=== PATIENT | female | born 1975 | race Caucasian/White ===

== ENCOUNTER 2018-02-19 15:48 | Inpatient (IN) ==
[2018-02-19] MEDS ORDERED: 0.9 % SODIUM CHLORIDE 1,000 ML IV ONE (15:59)
[2018-02-19] MEDS ORDERED: LACTATED RINGERS 1,000 ML IV ONE (16:23)
[2018-02-19] MEDS ORDERED: 0.9 % SODIUM CHLORIDE 1,000 ML IV SCH (16:30)
[2018-02-19] MEDS ORDERED: VANCOMYCIN 1,000 MG in 0.9 % SODIUM CHLORIDE 250 ML IV ONE (16:53)
[2018-02-19] MEDS ORDERED: LEVOFLOXACIN 500 MG/100 ML BAG IV ONE (16:53)
[2018-02-19] MEDS ORDERED: PIPERACILLIN SODIUM/TAZOBACTAM 3.375 GM in DEXTROSE 5% IN WATER 50 ML IV ONE (16:53)
--- NOTE | 2018-02-19 17:03 | XRay Report ---
INDICATION: Cough. Weakness. Syncope. TECHNIQUE: PA and lateral upright chest x-ray COMPARISON: Chest x-rays dated 10/17/2016, 09/12/2016, 08/21/2015 FINDINGS:There is cardiomegaly. Pulmonary vascularity is prominent with upper lobe redistribution. There is bronchial wall thickening. Appearance is most consistent with congestive heart failure and interstitial pulmonary edema. No pulmonary parenchymal consolidation. No pleural fluid. Clinical correlation and follow-up radiographs recommended. IMPRESSION: 1. Cardiomegaly 2. Prominent pulmonary vascularity and findings consistent with interstitial pulmonary edema Interpreted and Authenticated by: Luigi Lopes 02/19/18
--- NOTE | 2018-02-19 17:10 | Emergency Department Note ---
Syncope HPI - General Chief Complaint: Syncope Stated Complaint: Syncope in xray Time Seen by Provider: 02/19/18 15:58 Source: patient Mode of arrival: ambulatory - History of Present Illness HPI Narrative: 43-year-old female presents after a syncopal episode in radiology. States she went and saw Dr. Oviedo today after feeling very poorly for the last 3 days. She has had a fever, chills, and body aches that her first 24 hours. The body aches are now gone but she still just generally has no appetite and does not feel well. She has a cough that is occasionally productive with a clearish sputum. No sore throat or ear pain. No nausea, vomiting, or diarrhea. States she is really has not ate or drink much of anything in 3 days. Yesterday she ate half a hamburger but really has not eaten anything else in the last 72 hours. States she is only had a couple sips of water. Thinks she is just dehydrated when she would put her arms above her head to try to do a chest x- ray outpatient she had a syncopal episode. They have then brought her to the ER. She did not hit her head. No head, neck, or back pain. Dr. Oviedo did stop by to see the patient. Patient currently denies pain and has no complaints. She states she does get very lightheaded if she goes to stand up or moves too quickly. - Related Data Home Medications Medication Instructions Recorded Confirmed aspirin 81 mg tablet,delayed 81 mg PO QDAY tab 03/31/15 02/19/18 release calcium carbonate 500 mg calcium 1,250 mg PO QDAY tab 03/31/15 02/19/18 (1,250 mg) tablet fluticasone 50 mcg/actuation nasal 1 spray INTRANASAL BID PRN g 03/31/15 spray,suspension multivitamin tablet 1 tab PO QDAY tab 03/31/15 02/19/18 ibuprofen 600 mg tablet 600 mg PO Q4-8H PRN 07/17/15 02/19/18 Mycophenolate Mofetil [Cellcept] 1,500 mg PO BID 02/19/18 02/19/18 Previous Rx's Medication Instructions Recorded Acetaminophen [Tylenol] 650 mg PO Q6HP PRN #0 tab 08/22/15 ergocalciferol (vitamin D2) 50,000 50,000 unit PO QMONTH #12 cap 10/26/16 unit capsule hydrochlorothiazide 12.5 mg tablet 12.5 mg PO QDAY #30 tab 05/30/17 lisinopril 20 mg tablet 60 mg PO QDAY #90 tab 08/23/17 metoprolol tartrate 50 mg tablet 100 mg PO BID #120 tab 10/25/17 amlodipine 5 mg tablet 5 mg PO QDAY #30 tab 01/08/18 mycophenolate mofetil 500 mg tablet 1,500 mg PO BID #180 tab 01/15/18 Allergies Allergy/AdvReac Type Severity Reaction Status Date / Time ceftriaxone [From Rocephin] Allergy Severe Rash Verified 02/19/18 15:53 Penicillins Allergy Mild Hives Verified 02/19/18 15:53 Sulfa (Sulfonamide Allergy Mild Hives Verified 02/19/18 15:53 Antibiotics) Review of Systems All systems ED: reviewed and negative except as stated. 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) Elevated creatine kinase level (Chronic) Rheumatic disease (Acute) Elevated sedimentation rate (Chronic) Pulmonary infiltrates (Resolved) Anemia, normocytic normochromic (Chronic) Elevated troponin (Chronic) Hypertension, essential (Chronic) Hyperlipidemia (Chronic) Edema (Chronic 02/04/15) Anxiety disorder (Resolved) Allergic rhinitis (Chronic 02/04/15) Acute cystitis (Resolved) Bronchitis (Resolved) Bronchitis (Resolved) Community acquired pneumonia (Resolved) Cough (Resolved) Dyspnea (Resolved) Elevated C-reactive protein (CRP) (Resolved) Hypotension (Resolved) Hypoxia (Resolved) Joint pain (Resolved) Liver function abnormality (Resolved) Muscle weakness (generalized) (Resolved) Pneumonia (Resolved) Rash (Resolved) Transaminitis (Resolved) Urinary tract infection (Resolved) Volume depletion (Resolved) Anemia (Inactive) Past Surgical History (Last Reviewed 11/22/17 @ 15:59 by NILO De Anda) History of section (Chronic) History of bladder surgery (Chronic) Medical history: Reports: other (Interstitial lung diseas , hypertension, hyperlipidemia) Psychiatric history: Reports: no psych history Surgical history ED: Reports: , other - Social History smoking status: Never smoker Alcohol use: Reports: Rarely Drug use: Reports: none Physical Exam Limitations: no limitations General appearance: alert, in no apparent distress Head: atraumatic, normocephalic, normal inspection Eye: Present: normal appearance ENT: normal exam, normal oropharynx, mucous membranes moist, normal external ear exam Neck: Present: normal inspection, full ROM, trachea midline. Absent: tenderness , lymphadenopathy Chest: Present: normal inspection, symmetric chest wall rise Respiratory: Present: normal lung sounds bilaterally. Absent: respiratory distress, wheezes, accessory muscle use Cardiovascular: Present: regular rate, normal heart sounds Extremities: Present: normal inspection, normal capillary refill. Absent: pedal edema Neurological: Present: alert, oriented X3, normal gait Psychiatric: Present: normal affect, normal mood Skin: Present: warm, dry, intact, normal color. Absent: rash Course Course Narrative: At 1750 I did speak with the hospitalist, Dr. Argueta who agrees to accept the patient. Vital Signs Temperature 101.3 F H 02/19/18 15:49 Pulse Rate 96 H 02/19/18 15:49 Respiratory Rate 16 02/19/18 15:49 Blood Pressure 98/67 02/19/18 15:49 Pulse Oximetry (%) 97 02/19/18 15:49 Temperature 99.7 F H 02/19/18 17:48 Pulse Rate 107 H 02/19/18 17:36 Respiratory Rate 22 02/19/18 17:36 Blood Pressure 122/70 02/19/18 17:36 Pulse Oximetry (%) 95 02/19/18 17:36 Syncope - Lab Data Lab results reviewed: Yes I reviewed the patient's lab results. Lab Results 02/19/18 Range/Units 17:06 VBG Lactic Acid 1.2 (0.5-2.2) mmol/L - Radiology Data Radiology results reviewed: Yes I reviewed the patient's radiology results. Disposition Pt seen by [employer]/PA only: Yes Clinical Impression: Syncope due to orthostatic hypotension, Lower respiratory infection, Interstitial lung disease, Dehydration Disposition: Home, Self-Care Condition: Fair Referrals: Mary Metcalf ARNP [Primary Care Provider] - Lorne Oviedo MD [Physician] - Time of Disposition: 17:50
[2018-02-19 18:31] LABS: Appearance,Urine CLOUDY; Bacteria,Urine FEW /hpf (0); Bilirubin,Urine NEG (NEG); Color,Urine YELLOW; Glucose,Urine (UA) NEGATIVE (NEG); Leukocyte Esterase,Urine 25 /uL (NEG); Mucus,Urine MANY /hpf (0); Protein,Urine 30 mg/dL (NEG); Specific Gravity,Urine 1.019 (1.000-1.035); Urine Blood 0.03 mg/dL (<0.03); Urine Hyaline Cast 37 /lpf (0-2); Urine RBC 4 /hpf (0-1); Urine Squamous Epithelial Cell 3 /hpf (0-4); Urine WBC 8 /hpf (0-4); Urobilinogen,Urine NEG (NEG)
--- NOTE | 2018-02-19 18:35 | Internal Med History&Physical ---
Medical - H&P: HPI Patient information: Note initiated : 02/19/18 at 6:29 pm Service Date, if different from initiated Date: [] Patient: Darby Beal a 43 y/o F admitted on for Syncope in [facility]. Chief Complaint: [] History of present illness: Ms. Beal is a 43 year old Female with h/o antisynthetase antibody, ILD and inflammatory myositis, presents to the ER from [facility]. The patient follows with Dr Mansfield who is the fishing tool supervisor managing her chr conditions. The baseline health on , since Monday she has not been feeling well, she notes that she had been having chills fatigue and weakness. The patient's condition got worse over the next day. Her symptoms also included cough with whitish sputum. She just admitted to having significant malaise, and thought she was coming down with a viral illness. She also had decreased appetite and had not eaten much over the last 3 days or had much fluid intake over the last 3 days. She denies any other acute complaints or concerns. The patient felt that she was getting better this morning however her symptoms did not completely cristal. She therefore called her fishing tool supervisor. He advised her to come to the ER however the patient declined. He therefore ordered outpatient labs as well as chest x-ray for the patient. The patient and her labs, and while doing the chest x-ray the patient passed out. The patient was then sent to the ER for further evaluation. Cording to the patient she was standing upright when she passed out, there were no prodromal symptoms, no bowel bladder incontinence, no abnormal smells of visual changes, no chest pain palpitations before she passed out. He must have passed out for approximately a minute, felt that she was sweating when she woke up. In the ER the patient was febrile at presentation, tachycardic, blood pressure was borderline low, she usually takes blood pressure medications at home. According to the ED provider the patient also had positive orthostatic vital signs. Lab work shows leukocytosis with a WBC count of 16,000, hemoglobin is normal at 12.5, platelet 286. Patient has 14% bands, ESR is 100. Lactic acid is 1.2. Sodium 135, potassium 3.7, bicarbonate 22, BUN 16, creatinine 1.7 elevated from baseline, glucose 132. UA is pending. Chest x-ray shows increased markings possible CHF according to the radiology read. EKG is sinus tachycardia, non specivic t wave changes/ t wave flattening in the lateral leads, After reviewing care plan with Dr. mansfield it was decided to admit the patient, is okay to continue CellCept as per the fishing tool supervisor. 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) Elevated creatine kinase level (Chronic) Rheumatic disease (Acute) Elevated sedimentation rate (Chronic) Pulmonary infiltrates (Resolved) Anemia, normocytic normochromic (Chronic) Elevated troponin (Chronic) Hypertension, essential (Chronic) Hyperlipidemia (Chronic) Edema (Chronic 02/04/15) Anxiety disorder (Resolved) Allergic rhinitis (Chronic 02/04/15) Acute cystitis (Resolved) Bronchitis (Resolved) Bronchitis (Resolved) Community acquired pneumonia (Resolved) Cough (Resolved) Dyspnea (Resolved) Elevated C-reactive protein (CRP) (Resolved) Hypotension (Resolved) Hypoxia (Resolved) Joint pain (Resolved) Liver function abnormality (Resolved) Muscle weakness (generalized) (Resolved) Pneumonia (Resolved) Rash (Resolved) Transaminitis (Resolved) Urinary tract infection (Resolved) Volume depletion (Resolved) Anemia (Inactive) Surgical history: Past Surgical History (Last Reviewed 11/22/17 @ 15:59 by NILO De Anda) History of section (Chronic) History of bladder surgery (Chronic) Pertinent family history: Family History (Last Reviewed 11/22/17 @ 15:59 by NILO De Anda) Grandmother(Maternal) Malignant neoplasm of breast Father History of coronary artery bypass surgery Family history of arthritis Essential hypertension Medical - H&P: Meds Home Medications Medication Instructions Recorded Confirmed Type aspirin 81 mg tablet,delayed 81 mg PO QDAY tab 03/31/15 02/19/18 History release calcium carbonate 500 mg calcium 1,250 mg PO QDAY tab 03/31/15 02/19/18 History (1,250 mg) tablet fluticasone 50 mcg/actuation nasal 1 spray INTRANASAL BID PRN g 03/31/15 History spray,suspension multivitamin tablet 1 tab PO QDAY tab 03/31/15 02/19/18 History ibuprofen 600 mg tablet 600 mg PO Q4-8H PRN 07/17/15 02/19/18 History Acetaminophen [Tylenol] 650 mg PO Q6HP PRN #0 tab 08/22/15 02/19/18 Rx ergocalciferol (vitamin D2) 50,000 50,000 unit PO QMONTH #12 cap 10/26/16 Rx unit capsule hydrochlorothiazide 12.5 mg tablet 12.5 mg PO QDAY #30 tab 05/30/17 02/19/18 Rx lisinopril 20 mg tablet 60 mg PO QDAY #90 tab 08/23/17 02/19/18 Rx metoprolol tartrate 50 mg tablet 100 mg PO BID #120 tab 10/25/17 02/19/18 Rx amlodipine 5 mg tablet 5 mg PO QDAY #30 tab 01/08/18 02/19/18 Rx mycophenolate mofetil 500 mg tablet 1,500 mg PO BID #180 tab 01/15/18 02/19/18 Rx Mycophenolate Mofetil [Cellcept] 1,500 mg PO BID 02/19/18 02/19/18 History Allergies Allergy/AdvReac Type Severity Reaction Status Date / Time ceftriaxone [From Rocephin] Allergy Severe Rash Verified 02/19/18 15:53 Penicillins Allergy Mild Hives Verified 02/19/18 15:53 Sulfa (Sulfonamide Allergy Mild Hives Verified 02/19/18 15:53 Antibiotics) Medical - H&P: Exam - Constitutional Vitals: Temp Pulse Resp BP Pulse Ox 99.7 F H 112 H 20 122/71 96 02/19/18 17:48 02/19/18 18:16 02/19/18 18:16 02/19/18 18:16 02/19/18 18:16 Exam: GENERAL: The patient is a well-developed, well-nourished in no apparent distress. Is alert and oriented x3. obese indvidual VITAL SIGNS: Reviewed and as noted elsewhere. HEENT: Head is normocephalic and atraumatic. Extraocular muscles are intact. Pupils are equal, round, and reactive to light. Nares appeared normal. Mouth appears any without lesions. Mucous membranes are dry . NECK: Normal to inspection, Supple, No lymphadenopathy or thyromegaly. LUNGS: Air entry equal on both sides, no wheezing, crackles or rhonchi noted. No accessory muscles of respiration HEART: tachycardic rate and rhythm normal, S1 and S2 heard, no Gallop, S3 or Rub Noted, No Gross murmur heard. ABDOMEN: Soft, nontender, and nondistended. Positive bowel sounds. No hepatosplenomegaly was noted. EXTREMITIES: No cyanosis, clubbing, rash, lesions or edema. NEUROLOGIC: Cranial nerves II through XII are grossly intact. Motor and Sensory System Grossly Intact PSYCHIATRIC: Normal affect, Normal Mood. Appropriate Behavior. SKIN: No ulceration or wounds noted, No jaundice, No rash noted. Medical - H&P: A/P - Narrative A/P Narrative: A/P Pneumonia/ health care associated/ Pt is immunocompromised Sepsis Syncope due to volume depletion, Acute Kidney Injury, likely pre renal due to poor oral intake Inflammatory myositis/ ILD Obesity Hypertension Anxiety disorder Anemia PLan Admit to inpatient, monitor on tele given recent syncope IV vancomycin, levofloxacin and aztreonam (pt allergic to penicillin and cephlosporin) send mycoplasma, legionella, strep antigen, blood cx send, get sputum cx get CT chest given high suspicion of pna, if neg will need to look for souce of infection paul mosie, pt had no urinary complaints, ua pending conitnue cell cept, hold blood pressure meds IV fluids monitor renal function Plan of care reviewed with Dr Mansfield, DVT hep sq diet regular full code. Social History - Social History adopted: No caregiver/support person: No foster care: No household members: spouse, family housing: house lives independently: Yes marital status: education level: college service: No senior living: No occupational status: employed occupation: Teaching assisstant pets and animals: No hx recent travel: No sexually active: Yes - Tobacco smoking status: Never smoker - Alcohol alcohol intake frequency: does not drink - Substance use substance use type: does not use
[2018-02-19] MEDS ORDERED: ACETAMINOPHEN 325 MG TABLET PO PRN (18:53)
[2018-02-19] MEDS ORDERED: oxyCODONE/APAP 5/325MG TABLET PO PRN (18:53)
[2018-02-19] MEDS ORDERED: VANCOMYCIN PER PHARMACY IV SCH (18:53)
[2018-02-19] MEDS ORDERED: NALOXONE HCL 0.4 MG/ML VIAL IV PRN (18:53)
[2018-02-19] MEDS ORDERED: ONDANSETRON 4 MG/2 ML VIAL IV PRN (18:53)
[2018-02-19] MEDS ORDERED: FLUTICASONE PROPIONATE SPRAY.NAS NS PRN (18:53)
--- NOTE | 2018-02-19 19:23 | Cat Scan Report ---
CLINICAL INFORMATION: Interstitial lung disease COMPARISON: Previous chest x-rays dated 02/19/2018, 10/17/2016, 09/12/2016. Previous chest CT scan dated 05/05/2016 TECHNIQUE: Axial noncontrast enhanced images through the chest. Sagittally and coronally reformatted images. MIP reformatted images. Intravenous contrast material was not administered FINDINGS: Focal pulmonary parenchymal density in the right lung apex. This is not visible on plain film examination. This extends to the pleural surface. This may be pneumonia. Follow-up radiographs are necessary to exclude neoplasm. This is a new finding since previous CT scan. There are nonspecific peripheral infiltrates bilaterally, left slightly worse than right and worse at the lung bases. Interstitial edema is suspected on plain film examination. No other focal areas of consolidation. Patient gives a history of interstitial fibrosis. There is no honeycombing. There is no bronchiectasis. No centrilobular or paraseptal emphysema. There is no pathologic mediastinal adenopathy. The patricia are prominent. Intravenous contrast material was not administered in this examination is not sensitive for hilar adenopathy. There is coronary artery calcification, advanced for age. There is minimal right pleural fluid. No significant pericardial fluid. No axillary adenopathy. Upper abdomen is negative. IMPRESSION: 1. Dense focal pulmonary parenchymal density in the right lung apex. Appearance is most consistent with pneumonia. Follow-up examinations necessary to exclude neoplasm 2. Nonspecific mild peripheral and basilar infiltrates. Findings may be due to pneumonia but interstitial edema is possible 3. Coronary artery calcification, advanced for age The exam was performed using radiation dose optimization techniques including, but not limited to, automated exposure control, adjustment of the mA and/or kV according to patient size and use of iterative reconstruction technique. Interpreted and Authenticated by: Luigi Lopes 02/19/18
[2018-02-19] MEDS: 0.9 % SODIUM CHLORIDE 1,000 ML IV SCH (19:32)
[2018-02-19] MEDS: FAMOTIDINE 20 MG TABLET PO SCH (21:24)
[2018-02-19] MEDS: MYCOPHENOLATE 250 MG CAPSULE PO SCH (21:24)
[2018-02-19] MEDS: HEPARIN 5,000 UNIT/ML VIAL SQ SCH (21:25)
[2018-02-19] MEDS: 0.9 % SODIUM CHLORIDE 10 ML SYRINGE IV SCH (21:31)
[2018-02-19] MEDS: AZTREONAM 2 GM VIAL IV SCH (21:31)
[2018-02-20] MEDS: 0.9 % SODIUM CHLORIDE 1,000 ML IV SCH ×2 (04:42→11:55)
[2018-02-20] MEDS: 0.9 % SODIUM CHLORIDE 10 ML SYRINGE IV SCH ×3 (05:24→21:31)
[2018-02-20] MEDS: AZTREONAM 2 GM VIAL IV SCH ×3 (05:24→21:31)
[2018-02-20 05:32] LABS: Basophils # (Auto) 0 K/mcL (0.0-0.3); Basophils % (Auto) 0 % (0.0-2.0); Eosinophils # (Auto) 0 K/mcL (0.0-0.7); Eosinophils % (Auto) 0.2 % (0.0-7.0); Granulocytes % (Auto) 72.6 % (38.0-78.0); Lymphocytes % (Auto) 9.9 % (15.5-49.0); Mean Cell Volume 90.2 fL (80.0-100.0); Mean Corpuscular HGB Conc 33.8 g/dL (31.0-36.0); Mean Corpuscular Hemoglobin 30.5 pg (26.0-34.0); Monocytes # (Auto) 1.7 K/mcL (0.1-0.9); Monocytes % (Auto) 17.3 % (1.0-12.0); Platelet Count 196 K/mcL (140-440); RBC 3.35 M/mcL (4.00-5.20); Red Cell Distribution Width 13.1 % (11.5-14.5)
[2018-02-20 05:59] LABS: ALT/SGPT 6 U/l (0-40); Albumin 3.7 gm/dL (3.2-5.2); Albumin/Globulin Ratio 1.4 (1.0-2.3); Alkaline Phosphatase 50 U/L (39-117); Bilirubin,Direct < 0.2 mg/dL (0.0-0.3); Blood Urea Nitrogen 10 mg/dl (6-20); Gamma Glutamyl Transpeptidase 32 U/L (5-36); Uric Acid 5.8 mg/dL (2.5-8.0)
[2018-02-20] MEDS ORDERED: MAGNESIUM SULFATE 2 GM/50 ML BAG IV ONE (07:08)
[2018-02-20] MEDS ORDERED: POTASSIUM CHLORIDE 20 MEQ PACKET PO ONE (07:08)
[2018-02-20] MEDS: MYCOPHENOLATE 250 MG CAPSULE PO SCH ×2 (07:21→20:15)
[2018-02-20] MEDS ORDERED: VANCOMYCIN 1,000 MG in 0.9 % SODIUM CHLORIDE 250 ML IV SCH (08:00)
[2018-02-20] MEDS ORDERED: LEVOFLOXACIN 750 MG/150 ML BAG IV SCH (09:00)
[2018-02-20] MEDS ORDERED: ASPIRIN 81 MG TAB.CHEW PO SCH (09:00)
[2018-02-20] MEDS ORDERED: CALCIUM (OYSTER SHELL) 500 MG TABLET PO SCH (09:00)
[2018-02-20] MEDS ORDERED: METOPROLOL TARTRATE 50 MG TABLET PO SCH (09:00)
[2018-02-20] MEDS: HEPARIN 5,000 UNIT/ML VIAL SQ SCH ×2 (09:17→21:30)
[2018-02-20] MEDS: FAMOTIDINE 20 MG TABLET PO SCH ×2 (09:17→21:31)
--- NOTE | 2018-02-20 12:03 | Internal Med Progress Note ---
Medical - PN: Subj Patient information: Note initiated : 02/20/18 at 11:44 am Service Date, if different from initiated Date: [] Patient: Darby Beal a 43 y/o F admitted on 02/19/18 for Pneumonia, Sepsis , Syncope due to Volume Depletion. Chief Complaint: [] Interval history: Ms. Beal is a 43 year old Female with h/o antisynthetase antibody, ILD and inflammatory myositis, presents to the ER from [facility]. The patient follows with Dr Mansfield who is the combine driver managing her chr conditions. The baseline health on , since Monday she has not been feeling well, she notes that she had been having chills fatigue and weakness. The patient's condition got worse over the next day. Her symptoms also included cough with whitish sputum. She just admitted to having significant malaise, and thought she was coming down with a viral illness. She also had decreased appetite and had not eaten much over the last 3 days or had much fluid intake over the last 3 days. She denies any other acute complaints or concerns. The patient felt that she was getting better this morning however her symptoms did not completely cristal. She therefore called her combine driver. He advised her to come to the ER however the patient declined. He therefore ordered outpatient labs as well as chest x-ray for the patient. The patient and her labs, and while doing the chest x-ray the patient passed out. The patient was then sent to the ER for further evaluation. Cording to the patient she was standing upright when she passed out, there were no prodromal symptoms, no bowel bladder incontinence, no abnormal smells of visual changes, no chest pain palpitations before she passed out. He must have passed out for approximately a minute, felt that she was sweating when she woke up. In the ER the patient was febrile at presentation, tachycardic, blood pressure was borderline low, she usually takes blood pressure medications at home. According to the ED provider the patient also had positive orthostatic vital signs. Lab work shows leukocytosis with a WBC count of 16,000, hemoglobin is normal at 12.5, platelet 286. Patient has 14% bands, ESR is 100. Lactic acid is 1.2. Sodium 135, potassium 3.7, bicarbonate 22, BUN 16, creatinine 1.7 elevated from baseline, glucose 132. UA is pending. Chest x-ray shows increased markings possible CHF according to the radiology read. EKG is sinus tachycardia, non specivic t wave changes/ t wave flattening in the lateral leads, After reviewing care plan with Dr. mansfield it was decided to admit the patient, is okay to continue CellCept as per the combine driver. 02/20 Patient seen and examined, no acute overnight events, patient on telemetry becomes tachycardic with movement otherwise has been doing well. This morning her appetite has come back somewhat was able to tolerate some breakfast. Microbiology is negative so far, sputum cultures showing some gram-positive cocci no isolation yet. Pt has no acute complaints Pertinent ROS: Denies headache, dizziness Denies chest pain, palpitations Denies cough or shortness of breath Denies abdominal pain, nausea or vomiting. - Constitutional Vitals: Vital Signs Temp Pulse Resp BP Pulse Ox 97.8 F 100 H 18 115/72 95 02/20/18 03:50 02/20/18 03:50 02/20/18 03:50 02/20/18 03:50 02/20/18 03:50 Period Temp Pulse Resp BP Sys/Grissom Pulse Ox Last 24 Hr 97.8 F-101.3 F 92-114 16-28 98-126/50-80 95-97 Intake and Output 02/19/18 02/20/18 02/20/18 21:59 05:59 13:59 Intake Total 2350 / 2350 1000 / 1000 1100 / 1100 Output Total 2 / 2 Balance 2350 / 2350 998 / 998 1100 / 1100 Weight 224 lb 9.6 oz Intake & Output: Intake & Output 02/19/18 02/20/18 02/20/18 21:59 05:59 13:59 Intake Total 2350 / 2350 1000 / 1000 1100 / 1100 Output Total 2 / 2 Balance 2350 / 2350 998 / 998 1100 / 1100 Weight 224 lb 9.6 oz Intake: IV 2350 / 2350 1000 / 1000 300 / 300 Sodium Chloride 0.9% 1,000 ml @ 1000 / 1000 1000 / 1000 125 mls/hr IV .Q8H [facility] Rx#: [id number] Lactated Ringers 1,000 ml @ 1000 / 1000 Wide Open IV BOLUS ONE Rx#: [id number] Vancomycin 1,000 mg In Sodium 250 / 250 250 / 250 Chloride 0.9% 250 ml @ 250 mls/ hr IV Q12H [facility] Rx#:[id number] Oral 800 / 800 Output: # of times incontinent of urine 2 / 2 Other: # Voids 2 Exam: Constitutional; Afebrile, cooperative, alert, not in distress. Eyes- No icterus, , No periorbital swelling Ears- Ext ear normal, hearing normal to conversation. Neck- Midline trachea, supple Respiratory system: Air Entry equal on both sides, No crackles or wheezing, no rhonchi. CVS- Rate rhythm regular, S1,S2 heard, no gallop, no rub. Abdomen- Soft nontender abdomen, no organomegaly, no tenderness, no guarding or rigidity, REFUELER- AOOx3, moving all extremities, no gross focal deficit noted. Medical - PN: Obj Da - Labs CBC & Chem 7: 02/20/18 04:00 02/20/18 04:00 Labs: Abnormal Lab Results 02/20/18 02/20/18 02/19/18 04:00 04:00 17:53 RBC 3.35 L Hgb 10.2 L Hct 30.2 L Lymph % (Auto) 9.9 L Kingman % (Auto) 17.3 H Lymph # (Auto) 1.0 L Kingman # (Auto) 1.7 H Carbon Dioxide 20 L Calcium 8.4 L Phosphorus 2.6 L Magnesium 1.4 L Urine Protein 30 A Urine Ketones 20 A Urine Occult Blood 0.03 A Ur Leukocyte Esterase 25 A Urine RBC 4 H Urine WBC 8 H Urine Bacteria Few A Hyaline Casts 37 H Urine Mucus Many A Meds: Medications Acetaminophen (Tylenol) 650 mg PO Q6HP PRN PRN Reason: PAIN/FEVER > 101 Aspirin (Aspirin) 81 mg PO DAILY [facility] Last Admin: 02/20/18 09:17 Dose: 81 mg Aztreonam (Azactam) 2 gm IV Q8H [facility] Last Admin: 02/20/18 05:24 Dose: 2 gm Calcium Carbonate/Glycine (Oscal) 1,000 mg PO QDAY [facility] Last Admin: 02/20/18 09:17 Dose: 1,000 mg Famotidine (Pepcid) 20 mg PO BID [facility] Last Admin: 02/20/18 09:17 Dose: 20 mg Fluticasone Propionate (Flonase) 1 spray NS BIDP PRN PRN Reason: allergy symptoms Heparin Sodium (Porcine) (Heparin) 5,000 unit SQ Q12 [facility] Last Admin: 02/20/18 09:17 Dose: 5,000 unit Levofloxacin (Levaquin) 750 mg in 150 mls @ 100 mls/hr IV Q24H [facility] Last Admin: 02/20/18 09:18 Dose: 100 mls/hr Sodium Chloride (Sodium Chloride 0.9%) 1,000 mls @ 125 mls/hr IV .Q8H [facility] Stop: 02/20/18 18:52 Last Admin: 02/20/18 04:42 Dose: 125 mls/hr Vancomycin HCl 1,000 mg/ (Sodium Chloride) 250 mls @ 250 mls/hr IV Q12H [facility] Last Infusion: 02/20/18 08:49 Dose: Infused Mycophenolate Mofetil (Cellcept) 1,500 mg PO BID@0700,2000 [facility] Last Admin: 02/20/18 07:21 Dose: 1,500 mg Naloxone HCl (Narcan) 0.1 mg IV Q2MIN PRN PRN Reason: Opiate Reversal Ondansetron HCl (Zofran) 4 mg IV Q4HP PRN PRN Reason: Nausea And Vomiting Oxycodone/Acetaminophen (Percocet 5-325 Mg) 1 tab PO Q4HP PRN PRN Reason: PAIN LEVEL 3-6 Sodium Chloride (Saline Flush) 10 ml IV Q8 [facility] Last Admin: 02/20/18 05:24 Dose: 10 ml Vancomycin HCl (Vancomycin Per Pharmacy) 1 order IV [facility] [place] Medical - PN: A/P - Time Spent With Patient Total time spent is greater than 50% in coordination of care (as documented) at patient's floor/unit and/or counseling patient: - Narrative A/P Narrative: A/P Pneumonia/ health care associated/ Pt is immunocompromised Sepsis Syncope due to volume depletion, Acute Kidney Injury, likely pre renal due to poor oral intake Inflammatory myositis/ ILD Obesity Hypertension Anxiety disorder Anemia PLan Continue to monitor No evidence of cardiac arrhythmia to explain syncope noted. Discontinue telemetry patient's syncope episode likely related to pneumonia and hypertension IV vancomycin, levofloxacin and aztreonam (pt allergic to penicillin and cephalosporin) New broad-spectrum antibiotics for pneumonia, CT scan confirms a right upper lobe pneumonia. Legionella studies pending, strep and mycoplasma antibodies are negative. Sputum cultures pending, blood cultures pending, sputum Gram stain shows some gram-positive cocci continue cell cept, BP stable, resume beta-blockers as patient has been having tachycardia. Will resume other medications as blood pressure improves further. Kidney function back to normal, Plan of care reviewed with Dr Mansfield, DVT hep sq diet regular full code. Medical - PN: Qual - VTE Deep Vein Thrombosis/Pulmonary Embolism Present on Admission: No
[2018-02-20] MEDS ORDERED: VANCOMYCIN PER PHARMACY IV SCH (12:21)
[2018-02-20] MEDS ORDERED: NALOXONE HCL 0.4 MG/ML VIAL IV PRN (12:21)
[2018-02-20] MEDS ORDERED: FLUTICASONE PROPIONATE SPRAY.NAS NS PRN (12:21)
[2018-02-20] MEDS ORDERED: ONDANSETRON 4 MG/2 ML VIAL IV PRN (12:21)
[2018-02-20] MEDS ORDERED: ACETAMINOPHEN 325 MG TABLET PO PRN (12:21)
[2018-02-20] MEDS ORDERED: oxyCODONE/APAP 5/325MG TABLET PO PRN (12:21)
[2018-02-20] MEDS: METOPROLOL TARTRATE 50 MG TABLET PO SCH ×2 (13:01→20:16)
[2018-02-20] MEDS: VANCOMYCIN 1,000 MG in 0.9 % SODIUM CHLORIDE 250 ML IV SCH (20:15)
[2018-02-21] MEDS: 0.9 % SODIUM CHLORIDE 10 ML SYRINGE IV SCH (05:29)
[2018-02-21] MEDS: AZTREONAM 2 GM VIAL IV SCH (05:29)
[2018-02-21 06:12] LABS: ALT/SGPT 11 U/l (0-40); Albumin 3.8 gm/dL (3.2-5.2); Albumin/Globulin Ratio 1.4 (1.0-2.3); Alkaline Phosphatase 57 U/L (39-117); Bilirubin,Direct < 0.2 mg/dL (0.0-0.3); Blood Urea Nitrogen 10 mg/dl (6-20); Gamma Glutamyl Transpeptidase 47 U/L (5-36); Uric Acid 4.6 mg/dL (2.5-8.0)
[2018-02-21 06:49] LABS: Basophils # (Auto) 0 K/mcL (0.0-0.3); Basophils % (Auto) 0.4 % (0.0-2.0); Eosinophils # (Auto) 0.1 K/mcL (0.0-0.7); Eosinophils % (Auto) 2.1 % (0.0-7.0); Granulocytes % (Auto) 50.5 % (38.0-78.0); Lymphocytes # (Auto) 1.5 K/mcL (1.5-4.8); Lymphocytes % (Auto) 23.7 % (15.5-49.0); Mean Cell Volume 90.9 fL (80.0-100.0); Mean Corpuscular HGB Conc 33.4 g/dL (31.0-36.0); Mean Corpuscular Hemoglobin 30.4 pg (26.0-34.0); Monocytes # (Auto) 1.5 K/mcL (0.1-0.9); Monocytes % (Auto) 23.3 % (1.0-12.0); Platelet Count 242 K/mcL (140-440); RBC 3.52 M/mcL (4.00-5.20); Red Cell Distribution Width 13.4 % (11.5-14.5)
[2018-02-21] MEDS: METOPROLOL TARTRATE 50 MG TABLET PO SCH (08:22)
--- NOTE | 2018-02-21 08:22 | Discharge Summary ---
Medical - DS: Prov Patient information: Note initiated : 02/21/18 at 8:18 am Service Date, if different from initiated Date: [] Patient: Darby Beal 43 y/o F admitted on 02/19/18 for Pneumonia, Sepsis , Syncope due to Volume Depletion. Chief Complaint: [] Date of admission: 02/19/18 18:45 Discharge date: 02/21/18 Primary care physician: Mary Metcalf Admitting clinician: Ramone Argueta Consults: 02/19/18 17:16 Consult to Physician [CONS] Stat Comment: Consulting Provider: Ramone Argueta Reason For Exam: Physician to Consult Discharging clinician: Ramone Argueta Medical - DS: Meds - Discharge Medications Prescriptions: Levofloxacin [Levaquin] 750 mg PO DAILY #7 tab Active and Home Medications: Home Medications aspirin 81 mg tablet,delayed release 81 mg PO QDAY tab 03/31/15 [History Confirmed 02/19/18 Last Taken 08/20/15] calcium carbonate 500 mg calcium (1,250 mg) tablet 1,250 mg PO QDAY tab [History Confirmed 02/19/18 Last Taken 08/20/15] fluticasone 50 mcg/actuation nasal spray,suspension 1 spray INTRANASAL BID PRN g 03/31/15 [History Confirmed 02/19/18 Last Taken Unknown] multivitamin tablet 1 tab PO QDAY tab 03/31/15 [History Confirmed 02/19/18 Last Taken 08/14/15] ibuprofen 600 mg tablet 600 mg PO Q4-8H PRN 07/17/15 [History Confirmed Last Taken Unknown] Acetaminophen [Tylenol] 650 mg PO Q6HP PRN #0 tab 08/22/15 [Rx Confirmed Last Taken Unknown] ergocalciferol (vitamin D2) 50,000 unit capsule 50,000 unit PO QMONTH #12 cap [Rx Confirmed 02/19/18 Last Taken Unknown] hydrochlorothiazide 12.5 mg tablet 12.5 mg PO QDAY #30 tab 05/30/17 [Rx Confirmed 02/19/18 Last Taken Unknown] lisinopril 20 mg tablet 60 mg PO QDAY #90 tab 08/23/17 [Rx Confirmed 02/19/18 Last Taken Unknown] metoprolol tartrate 50 mg tablet 100 mg PO BID #120 tab 10/25/17 [Rx Confirmed 02/19/18 Last Taken Unknown] amlodipine 5 mg tablet 5 mg PO QDAY #30 tab 01/08/18 [Rx Confirmed 02/19/18 Last Taken Unknown] mycophenolate mofetil 500 mg tablet 1,500 mg PO BID #180 tab 01/15/18 [Rx Confirmed 02/19/18 Last Taken Unknown] Mycophenolate Mofetil [Cellcept] 1,500 mg PO BID 02/19/18 [History Confirmed Last Taken Unknown] Medical - DS: Hosp Hospital course: Ms. Beal is a 43 year old Female with h/o antisynthetase antibody, ILD and inflammatory myositis, admitted to the hospital with symptos of fever, chills, syncope. The baseline health on , since Monday she has not been feeling well, she notes that she had been having chills fatigue and weakness. The patient's condition got worse over the next day. Her symptoms also included cough with whitish sputum, malaise/ fatigue. She also had decreased appetite and had not eaten much over the last 3 days or had much fluid intake over the last 3 days. The patient felt that she was getting better this morning however her symptoms did not completely cristal. She therefore called her specialty development consultant. He advised her to come to the ER however the patient declined. He therefore ordered outpatient labs as well as chest x-ray for the patient. The patient and her labs, and while doing the chest x-ray the patient passed out. The patient was then sent to the ER for further evaluation. In the ER the patient was febrile at presentation, tachycardic, blood pressure was borderline low, she usually takes blood pressure medications at home. According to the ED provider the patient also had positive orthostatic vital signs. Lab work shows leukocytosis with a WBC count of 16,000, hemoglobin is normal at 12.5, platelet 286. Patient has 14% bands, ESR is 100. Lactic acid is 1.2. Sodium 135, potassium 3.7, bicarbonate 22, BUN 16, creatinine 1.7 elevated from baseline, glucose 132. UA is pending. Chest x-ray shows increased markings possible CHF according to the radiology read. EKG is sinus tachycardia, non specivic t wave changes/ t wave flattening in the lateral leads, After reviewing care plan with Dr. mansfield it was decided to admit the patient, is okay to continue CellCept as per the specialty development consultant. patient was admitted to the hospital for further management, Broad spectrum ABX Started, CT chest ordered CT chest was positive for pneumonia in the right upper lobe. The patient was treated with IV vancomycin, aztreonam and levofloxacin for pna, / hcap coverage. The patient responded to treatment well. Her microbiology is negative at 48 hrs. She has shown significant clinical improvement. The patient is ambulatory, tolerating po diet well and in good spirits, She will be discharged home on oral levofloxacin for another 7 days She was monitored on tele and no significant arrythmia was noted. Her syncope likely from low bp and acute infection. She has been educated on the need for a repeat CT chest to evaluate The rest of the stay in the hospital was uneventful. No changes made to her [facility] home med list. CHEST CTIMPRESSION: 1. Dense focal pulmonary parenchymal density in the right lung apex. Appearance is most consistent with pneumonia. Follow-up examinations necessary to exclude neoplasm 2. Nonspecific mild peripheral and basilar infiltrates. Findings may be due to pneumonia but interstitial edema is possible 3. Coronary artery calcification, advanced for age Discharge diagnosis: Pneumonia - Time Spent with Patient Total time spent providing and/or coordinating discharge services: Less than 30 minutes Medical - DS: Exam - Constitutional Vitals: Vital Signs Temp Pulse Pulse Resp BP Pulse Ox 02/21/18 04:00 98.0 F 92 H 16 122/81 97 02/21/18 00:00 98.3 F 84 16 126/87 98 02/20/18 20:00 98.6 F 105 H 105 H 18 147/93 97 02/20/18 15:58 98.9 F 106 H 16 133/87 99 02/20/18 12:00 98.4 F 112 H 18 115/78 97 Intake and Output 02/20/18 02/21/18 02/21/18 21:59 05:59 13:59 Intake Total 240 / 240 800 / 800 Balance 240 / 240 800 / 800 Intake: Oral 240 / 240 800 / 800 Other: Meal Dinner Percent of Meal Consumed 100% Stool Color Brown Stool Consistency Normal for Patient # Voids 3 2 # Bowel Movements 1 Weight 222 lb 8 oz Additional comments: Constitutional; Afebrile, cooperative, alert, not in distress. Eyes- No icterus, , No periorbital swelling Ears- Ext ear normal, hearing normal to conversation. Neck- Midline trachea, supple Respiratory system: Air Entry equal on both sides, No crackles or wheezing, no rhonchi. CVS- Rate rhythm regular, S1,S2 heard, no gallop, no rub. Abdomen- Soft nontender abdomen, no organomegaly, no tenderness, no guarding or rigidity, PROJECT ASST- AOOx3, moving all extremities, no gross focal deficit noted. Medical - DS: Data Labs on day of discharge: Labs from last 24 hours 02/21/18 02/21/18 02/21/18 07:00 03:45 03:45 WBC 6.2 RBC 3.52 L Hgb 10.7 L Hct 32.0 L MCV 90.9 MCH 30.4 MCHC 33.4 RDW 13.4 Plt Count 242 MPV 8.7 Gran % 50.5 Lymph % (Auto) 23.7 Ray % (Auto) 23.3 H Eos % (Auto) 2.1 Baso % (Auto) 0.4 Gran # 3.2 Lymph # (Auto) 1.5 Ray # (Auto) 1.5 H Eos # (Auto) 0.1 Baso # (Auto) 0 Sodium 139 Potassium 4.2 Chloride 103 Carbon Dioxide 20 L Anion Gap 16.0 BUN 10 Creatinine 0.7 GFR Calculation 105 Glucose 84 Uric Acid 4.6 Calcium 8.9 Phosphorus 2.8 Magnesium 1.9 Total Bilirubin 0.3 Direct Bilirubin < 0.2 GGT 47 H AST 17 ALT 11 Alkaline Phosphatase 57 Lactate Dehydrogenase 131 Total Protein 6.6 Albumin 3.8 Globulin 2.8 Albumin/Globulin Ratio 1.4 Triglycerides 158 H Vancomycin Trough 7.4 Preliminary micro results at discharge 02/19/18 17:06 Blood Culture - Preliminary Blood 02/19/18 17:10 Blood Culture - Preliminary Blood Medical - DS: A/P - Patient/Caregiver Discharge Instructions Activity: increase activity as tolerated Diet: Regular Diet Additional Instructions: Please take antibiotics levofloxacin 750 mg 1 tablet once a day for another 7 days. Follow-up with your PCP in 1 week Follow-up with the specialty development consultant as per his previous schedule No changes have been made in a chronic home medication list please take them as prescribed by her PCP and specialty development consultant Please go back to the emergency room if you develop fever shortness of breath chest pain or any other acute concerning symptom. The CT scan showed to have pneumonia in the right upper lobe however a neoplasm could not be excluded. He will need a repeat CT scan in approximately 4 weeks to evaluate this further. Please talk to your primary care doctor for ordering another scan in 4 weeks. - Follow up Plan Follow up with: Lorne Mansfield MD [Physician] - Mary Metcalf ARNP [Primary Care Provider] - Disposition: Home, Self-Care Prognosis: Fair Rehab Potential: Fair I certify that the patient requires SNF services: No Overall status at discharge: patient is progressing back to baseline Medical - DS: Qual - VTE Deep Vein Thrombosis/Pulmonary Embolism Present on Admission: No
[2018-02-21] MEDS: HEPARIN 5,000 UNIT/ML VIAL SQ SCH (08:23)
[2018-02-21] MEDS: FAMOTIDINE 20 MG TABLET PO SCH (08:23)
[2018-02-21] MEDS: MYCOPHENOLATE 250 MG CAPSULE PO SCH (08:27)
[2018-02-21] MEDS ORDERED: ASPIRIN 81 MG TAB.CHEW PO SCH (09:00)
[2018-02-21] MEDS ORDERED: LEVOFLOXACIN 750 MG/150 ML BAG IV SCH (09:00)
[2018-02-21] MEDS ORDERED: CALCIUM (OYSTER SHELL) 500 MG TABLET PO SCH (09:00)
[2018-02-21] MEDS: VANCOMYCIN 1,000 MG in 0.9 % SODIUM CHLORIDE 250 ML IV SCH (10:09)
[2018-02-23 08:34] LABS: Legionella pneumophilia Ag, Ur NOT DETECTED
== END 2018-02-21 11:30 | disposition home or self-care (01) | DRG 871 ==
LOC: ED 15:48 → ICU 18:45
PROVIDERS: ADMIT Internal Medicine; ATTEND Internal Medicine